=== PATIENT | female | born 1995 | race Caucasian/White ===

== ENCOUNTER → 2017-03-31 | Outpatient (CLI) | payer BC ==
--- NOTE | 2017-03-31 17:26 | DI ---
Indication: ITS.REASON: R31.9 HEMATURIA; R31.0; R10.9; R50.9 PROCEDURE: CT RENAL W/O CONTRAST: Encounter: Initial Comparison: None Technique: Axial CT images were performed through the abdomen and pelvis without intravenous contrast. Coronal and sagittal two-dimensional reformats. Automated Exposure Control and Iterative Reconstruction dose reducing techniques were utilized. Findings: The lung bases are clear. The unenhanced contours of the liver, spleen, pancreas, adrenal glands and kidneys are within normal limits. No renal stones appreciated. No ureteral stones seen. The bladder appears normal. Uterus and ovaries are grossly normal for age. No free pelvic fluid. No evidence of a bowel obstruction. Occasional nondilated fluid-filled small bowel loops. The appendix is not definitely seen but there are no inflammatory changes identified to suggest acute appendicitis. Bone windows are within normal limits. Impression: No urolithiasis or CT evidence of acute appendicitis. Possible gastroenteritis. .
== END ==
LOC: IMA 16:51
PROVIDERS: ATTEND Family Medicine
DX: R31.0 Gross hematuria (principal); R10.32 Left lower quadrant pain; R50.9 Fever, unspecified